=== PATIENT | female | born 1995 | race Caucasian/White ===

== ENCOUNTER 2020-04-10 11:48 | Emergency (ER) | payer OTHER ==
[2020-04-10 11:59] VITALS: TEMP 98.1; BMI 24.9
--- OUTSIDE RECORDS SUMMARY | 2020-04-10 12:19 | XMS ---
:1995 Author Organization [facility] Support Name Relationship Address Phone UE Unavailable Unavailable Unavailable EDNA VASQUEZ [address] [phone] [place] [address] Re-disclosure Warning The records that you are about to access may contain information from federally- assisted alcohol or drug abuse programs. If such information is present, then the following federally mandated warning applies: This information has been disclosed to you from records protected by federal confidentiality rules (42 CFR part 2). The federal rules prohibit you from making any further disclosure of this information unless further disclosure is expressly permitted by the written consent of the person to whom it pertains or as otherwise permitted by 42 CFR part 2. A general authorization for the release of medical or other information is NOT sufficient for this purpose. The Federal rules restrict any use of the information to criminally investigate or prosecute any alcohol or drug abuse patient.The records that you are about to access may contain highly sensitive health information, the redisclosure of which is protected by Article 27-F of the [facility] Public Health law. If you continue you may haveaccess to information: Regarding HIV / AIDS; Provided by facilities licensed or operated by the [facility] Office of Mental Health; or Provided by the [facility] Office for People With Developmental Disabilities. If such information is present, then the following [facility] mandated warning applies: This information has been disclosed to you from confidential records which are protected by state law. State law prohibits you from making any further disclosure of this information without the specific written consent of the person to whom it pertains, or as otherwise permitted by law. Any unauthorized further disclosure in violation of state law may result in a fine or alf sentence or both. A general authorization for the release of medical or other information is NOT sufficient authorization for further disclosure. Insurance Providers Payer name Policy type Policy ID Covered Covered libertarian's Policy P navya / Coverage libertarian ID relationship to [facility] ormation type [facility] [id number] FIRST
[2020-04-10] MEDS ORDERED: ACETAMINOPHEN 500 MG TABLET (FP) PO ONE (13:19)
--- NOTE | 2020-04-10 13:19 | PDOC ---
History of Present Illness - General Chief Complaint: Diarrhea Stated Complaint: ABD PAIN/DIARRHEA Time Seen by Provider: 04/10/20 12:30 - History of Present Illness Initial Comments: 24yo F with no significant PMH who presents with diarrhea x 10days. Reports about 4 episodes/day of loose, nonbloody stools a/w diffuse abdominal cramping that occur after meals. Denies f/c, n/v, sick contacts, recent travel. Has been tolerating PO intake. Thinks that episode was triggered by eating a [employer] falafel sandwich 10 days prior, which she states has caused 1 day of diarrhea whenever she has eaten these sandwiches. Reports 6-7month hx of UTIs and yeast infections requiring multiple courses of antibiotics and other medications (did not remember names). Last antibiotic use was about 2 weeks ago. Lives at home with , and two children - 4 year old goes to [employer] [facility]. States that menstrual period began yesterday, prior LMP was about one month prior. PCP: none PMH: denies PSH: C section Meds: control pill Allergies: NKDA Review of Systems CONSTITUTIONAL: denies fever, chills, diaphoresis, generalized weakness, malaise, loss of appetite HEENT: denies rhinorrhea, nasal congestion, sore throat CARDIOVASCULAR: denies chest pain, palpitations, irregular heart rate, lightheadedness, peripheral edema RESPIRATORY: denies cough, shortness of breath, wheezing, hemoptysis GASTROINTESTINAL: reports diarrhea, abdominal pain; denies nausea, vomiting, constipation, melena, hematochezia GENITOURINARY: denies dysuria, frequency, urgency, hematuria HEMATOLOGIC/IMMUNOLOGIC: denies easy bleeding, easy bruising ENDOCRINE: denies unexplained weight gain, unexplained weight loss NEUROLOGIC: denies headache, loss of consciousness, focal weakness or paresthesias, dizziness SKIN: denies rash, itching, pallor Physical Exam General: awake, alert, fully oriented, in no acute distress, well developed, well nourished Head: normocephalic, atraumatic Eyes: PERRL, anicteric sclera, conjunctiva clear ENT: hearing grossly normal, oropharynx clear without exudates, moist mucous membranes Neck: supple, normal ROM Lung: equal breath sounds b/l, CTA b/l, no crackles, wheezes; no distress, speaks full sentences Heart: RRR, normal S1, S2, no murmurs appreciated Abdomen: soft, mildly diffusely tender with no maximal point of tenderness, normoactive bowel sounds, no guarding, rebound, masses Extremities: no edema, no erythema or tenderness, radial/PT pulses 2+ and symmetric Neuro: CN2-12 grossly intact, moves all extremities, normal speech, normal gait, sensation intact Skin: warm, dry, normal skin turgor, capillary refill <2 seconds, no rashes or lesions noted MDM 24yo F with no significant PMH who presents with diarrhea x 10days. Vitals WNL DDx including but not limited to: C diff colitis, foodborne illness, viral infection, COVID Workup: CBC, CMP, UA, stool culture, C diff TX: IV fluid, Tylenol Labs: leukopenia with lymphocytosis, no anemia, electrolytes WNL, glucose low, UA with hematuria - will give juice - hematuria less concerning given report of current menstrual bleeding, no sxs of nephrolithiasis - will give precautions for covid Re-assessment Patient stable for discharge. Tolerating PO, pain improved. Informed of all lab results. Given follow up instructions and strict return precautions. Pt was in agreement, endorsed understanding, and questions were answered. Pt instructed to follow-up with primary care clinic. Disposition: Discharge Past History - Medical History Allergies/Adverse Reactions: Allergies Allergy/AdvReac Type Severity Reaction Status Date / Time No Known Allergies Allergy Verified 04/10/20 11:55 Home Medications: Ambulatory Orders Unobtainable 04/10/20 COPD: No - Reproductive History Is Patient Now?: No Cervical CA: No Dysfunctional Uterine Bleeding: No Ectopic : No Endometrial CA: No Polycystic Ovaries: No Therapeutic (s) & number: No Tubal Ligation: No - Psycho-Social/Smoking History Smoking History: Never smoked Have you smoked in the past 12 months: No Information on smoking cessation initiated: Yes - Substance Abuse Hx (Audit-C & DAST Scrn) How often the patient has a drink containing alcohol: Never Score: In Men: 4 or > Positive; In Women: 3 or > Positive: 0 Screen Result (Pos requires Nsg. Audit-10AR): Negative In the last yr the pt used illegal drug/Rx for NonMed reason: No Score: Yes response is considered Positive: 0 Screen Result (Positive result requires Nsg. DAST-10): Negative *Physical Exam - Vital Signs Last Vital Signs Temp Pulse Resp BP Pulse Ox 98.1 F 83 16 110/74 100 04/10/20 11:55 04/10/20 11:55 04/10/20 11:55 04/10/20 11:55 04/10/20 11:55 ED Treatment Course - LABORATORY CBC & Chemistry Diagram: 04/10/20 14:04 04/10/20 14:04 Discharge - Discharge Information Problems reviewed: Yes Clinical Impression/Diagnosis: Diarrhea Qualifiers: Diarrhea type: unspecified type Qualified Code(s): R19.7 - Diarrhea, unspecifie d Disposition: HOME - Admission No - Follow up/Referral Referrals: ON STAFF,NOT [Primary Care Provider] - [facility] at [place] [Provider Group] - Patient Discharge Instructions Patient Printed Discharge Instructions: DI for Diarrhea and Traveler's Diarrhea -- Adult Additional Instructions: You were seen in the emergency department for diarrhea. We are concerned that your symptoms may be due to coronavirus (COVID-19). We recommend that you and your child stay at home for the next few days, until you receive the results of your covid testing. You were given a referral to our primary care clinic. You should receive a call in the next 3-5 days to set up your appointment. Home Care and Follow Up: - Make sure you are drinking plenty of fluids while you are sick. Increase your normal fluid intake. It is OK if you do not feel like eating as long as you are staying well hydrated - We recommend consuming items with probiotics, you can find this at your grocery stores and may be found in yogurt, etc. - WASH YOUR HANDS frequently - especially if you touch your face, eat, or cough. - Wear a mask or bandana over your nose and mouth to help prevent transmitting the virus to other people. Do not touch the mask. - You may use medications such as acetaminophen (Tylenol) 650-1000mg or ibuprofen (Advil, Motrin) 400-600mg every 6 hours as needed for pain or fever over 101F - Seek immediate care if you have worsening symptoms, difficulty breathing, you are unable to stay hydrated, you develop high fevers over 104F that do not come down with medication, or you have any other medical emergency. Thank you for coming to the [facility]. We hope you feel better soon! - Post Discharge Activity
[2020-04-10] MEDS ORDERED: SODIUM CHLORIDE 0.9% 500 ML INFUS.BAG IV ONE (13:29)
[2020-04-10] MEDS ORDERED: ACETAMINOPHEN 325 MG TABLET (FP) ONE (13:33)
[2020-04-10 14:33] LABS: EOS % 3.8 % (0-4.5); HEMATOCRIT 43.6 % (32.4-45.2); HEMOGLOBIN 14.1 GM/dL (10.7-15.3); LYMPH % 50.6 % (8-40); MCH 28.7 pg (25.7-33.7); MCHC 32.3 g/dl (32.0-36.0); MEAN PLT VOLUME 7.7 fl (7.5-11.1); MONO % 7.7 % (3.8-10.2); NEUT % 36.9 % (42.8-82.8); PLATELET COUNT 469 K/MM3 (134-434); RDW 13.6 % (11.6-15.6); WHITE BLOOD COUNT 3.6 K/mm3 (4.0-10.0)
[2020-04-10 14:41] LABS: POTASSIUM 4.6 mmol/L (3.5-5.1)
[2020-04-10 14:42] LABS: EPI CELLS 23 /uL (0-25.1); HYALINE CASTS 3 /uL (0-3.1); URINE APPEARANCE CLEAR; URINE BACTERIA 40 /uL (0-1359); URINE BILIRUBIN NEGATIVE (NEGATIVE); URINE COLOR YELLOW; URINE GLUCOSE (UA) NEGATIVE (NEGATIVE); URINE KETONE NEGATIVE (NEGATIVE); URINE LEUK ESTERASE NEGATIVE (NEGATIVE); URINE NITRITE NEGATIVE (NEGATIVE); URINE PROTEIN NEGATIVE (NEGATIVE); URINE RBC 1592 /uL (0-23.9); URINE UROBILINOGEN 0.2 mg/dL (0.2-1.0); URINE WBC 27 /uL (0-25.8)
[2020-04-10 14:44] LABS: ALBUMIN 3.9 g/dl (3.4-5.0); BLOOD UREA NITROGEN 14.5 mg/dL (7-18); CALCIUM 9.8 mg/dL (8.5-10.1)
[2020-04-10 14:46] LABS: CREATININE 0.6 mg/dL (0.55-1.3)
[2020-04-10 14:48] LABS: BILIRUBIN,TOTAL 0.3 mg/dL (0.2-1); TOT PROT 8.6 g/dl (6.4-8.2)
--- NOTE | 2020-04-10 15:24 | PDOC ---
Documentation entered by Erasto Arellano SCRIBE, acting as scribe for Lencho Rojas MD. Lencho Rojas MD: This documentation has been prepared by the Adan rascon Xhesika, SCRIBE, under my direction and personally reviewed by me in its entirety. I confirm that the documentation accurately reflects all work, treatment, procedures, and medical decision making performed by me. Attending Attestation - Resident Resident Name: Kavita Leesa - ED Attending Attestation I have performed the following: I have examined & evaluated the patient, The case was reviewed & discussed with the resident, I agree w/resident's findings & plan, Exceptions are as noted - HPI HPI: 04/10/20 12:45 24y/o F with a PMH of UTI who presents to the ED for 10 days of abdominal pain/cramping a/w diarrhea. Pt reports 4 episodes of loose stool daily. Pt states she had a [employer] falafel sandwich prior to the onset of her symptoms. Pt states she has been taking abx for yeast infection for the past 6-7months, requiring multiple courses of antibiotics and other medications (last antibiotic use was about 2 weeks ago). Pt denies any sick contacts but states her child goes to a pre-K program. Pt denies CP, SOB, fevers, chills, N/V. Allergies: NKDA - Physicial Exam PE: 04/10/20 14:41 Vitals: Triage Vital signs reviewed General Appearance: no acute distress, well nourished well developed, Chest Wall: Nontender Cardiac: Regular rate and rhythm, no murmurs, no rubs, no gallops, Lungs: Clear to auscultation bilateral, good air movement bilaterally, Abdomen: Soft, nondistended, normal bowel sounds, nontender to palpation Extremities: Full range of motion to all extremities, no cyanosis, clubbing, or edema Skin: Warm and dry, no rashes or lesions, no petechiae Neuro: AOX3; Cranial Nerves 2-12 grossly c intact, Strength intact to all extremities, Sensation intact to all extremities Psych: normal mood, normal affect - Medical Decision Making 04/10/20 15:53 Well-appearing no apparent distress no abdominal pain labs within normal limits Stool cultures pending Covid pending patient will quarantine until Covid results at home and stool cultures Recommend probiotic fluids we have arranged to have the patient follow-up in our outpatient clinic Findings, need for follow-up and strict return instructions discussed with patient Discharge - Discharge Information Problems reviewed: Yes Clinical Impression/Diagnosis: Diarrhea Qualifiers: Diarrhea type: unspecified type Qualified Code(s): R19.7 - Diarrhea, unspecified Disposition: HOME - Follow up/Referral Referrals: [facility] at [place] [Provider Group] ON STAFF,NOT [Primary Care Provider] - - Patient Discharge Instructions Patient Printed Discharge Instructions: DI for Diarrhea and Traveler's Diarrhea -- Adult Additional Instructions: You were seen in the emergency department for diarrhea. We are concerned that your symptoms may be due to coronavirus (COVID-19). We recommend that you and your child stay at home for the next few days, until you receive the results of your covid testing. You were given a referral to our primary care clinic. You should receive a call in the next 3-5 days to set up your appointment. Home Care and Follow Up: - Make sure you are drinking plenty of fluids while you are sick. Increase your normal fluid intake. It is OK if you do not feel like eating as long as you are staying well hydrated - We recommend consuming items with probiotics, you can find this at your grocery stores and may be found in yogurt, etc. - WASH YOUR HANDS frequently - especially if you touch your face, eat, or cough. - Wear a mask or bandana over your nose and mouth to help prevent transmitting the virus to other people. Do not touch the mask. - You may use medications such as acetaminophen (Tylenol) 650-1000mg or ibuprofen (Advil, Motrin) 400-600mg every 6 hours as needed for pain or fever over 101F - Seek immediate care if you have worsening symptoms, difficulty breathing, you are unable to stay hydrated, you develop high fevers over 104F that do not come down with medication, or you have any other medical emergency. Thank you for coming to the [facility] ER. We hope you feel better soon! - Post Discharge Activity
[2020-04-10 16:01] VITALS: BP 115/75; PULSE 79
== END 2020-04-10 16:02 | disposition home or self-care (01) ==
LOC: JER 11:48
DX: R19.7 Diarrhea, unspecified (principal)
CPT/HCPCS: 36415; 80053; 81003; 84703; 85025; 87045; 87046; 87086; 87186; 87324; 87449; 99284-25; C9803; U0003